=== PATIENT | male | born 1950 | race Caucasian/White ===

== ENCOUNTER 2022-06-12 12:56 | Inpatient (IN) ==
[2022-06-12] MEDS ORDERED: ONDANSETRON INJ 2 MG/ML 2 ML VIAL IV STA (13:12)
[2022-06-12] MEDS ORDERED: MoRPHine SULFATE 4 MG/ML 1 ML CARP\\VIAL IV STA ×2 (13:12→15:35)
--- NOTE | 2022-06-12 13:18 | Emergency Department Note ---
History of Present Illness General Chief complaint: Chest Pain Stated complaint: CHEST PAIN Time Seen by Provider: 06/12/22 13:03 Source: patient Mode of arrival: ambulatory Limitations: no limitations History of Present Illness Maximum Pain Intensity: 8 This patient is a 72-year-old male comes in with left upper abdominal pain radiating down to his groin and back. He says if I had to guess I think it is a kidney stone he has had them before with the last one 3 years ago he initially said chest pain but when he points his it is in his abdomen has no upper chest pain. He appears uncomfortable. This started suddenly. No dysuria hematuria no fever chills no trauma. He does appear somewhat anxious as well and he says he has been under a lot of stress because of his 's health. He is on no blood thinners he has a history of hypertension and gout. No history of abdominal surgery or aneurysms. No trauma or injury. No numbness or weakness Home Medications Medication Instructions Recorded Confirmed Type allopurinol 100 mg tablet 100 mg PO DAILY 06/12/22 06/12/22 History hydroxychloroquine 200 mg tablet 200 mg PO DAILY 06/12/22 06/12/22 History lisinopril 10 mg tablet 10 mg PO QPM 06/12/22 06/12/22 History metoprolol succinate 25 mg 25 mg PO QAM 06/12/22 06/12/22 History tablet,extended release 24 hr Allergies Allergy/AdvReac Type Severity Reaction Status Date / Time No Known Allergies Allergy Unverified 06/12/22 13:53 Past Med/Surg History Medical History (Updated 06/12/22 @ 18:07 by Landen Humphreys MD) Arthritis Essential hypertension Gout History of basal cell carcinoma (BCC) of skin Nephrolithiasis Surgical History (Updated 06/12/22 @ 16:18 by Carmen Bradford PA-C) H/O hernia repair 1969 and 1979 History of extraction of renal calculus Hx of tonsillectomy Family History (Updated 06/12/22 @ 16:19 by Carmen Bradford PA-C) Mother Cancer Breast, 30 yrs later pancreatic cancer --> cause of Brother Heart disease Brother Cancer Prostate Cancer Social History (Updated 06/12/22 @ 16:15 by Carmen Bradford PA-C) Smoking Status: Former smoker Do You Dip or Chew Tobacco: No; Hx Alcohol Use: Yes Alcohol type: beer Hx Substance Use: No Preferred Language: Kenyan Communication Ability: Effective 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 Hypertension Social historylives locally with his Review of Systems A total of 10 systems reviewed and were otherwise negative Physical Exam Vital Signs Vital Signs - 24 hr 06/12/22 12:58 06/12/22 13:27 06/12/22 13:27 Temperature 36.1 C L Temperature Source Temporal Artery Scan Pulse Rate 72 Pulse Rate [Apical] Pulse Rhythm Pulse Rhythm [Apical] Pulse Strength [Apical] Respiratory Rate 16 Respiratory Effort / Characteristics Non-Labored Short of Breath Respiratory Depth Normal Normal Respiratory Pattern Regular Blood Pressure 140/77 Blood Pressure [Left Arm] Blood Pressure Mean 98 Blood Pressure Mean [Left Arm] Pulse Oximetry 98 95 Oxygen Delivery Method Room Air Room Air Room Air Sepsis Recent Fever Within 48 Hours No Sepsis New/Unexplained Change in Mental Status N/A Sepsis Action Taken by Nursing No Action Required 06/12/22 13:27 06/12/22 13:46 06/12/22 15:26 Temperature Temperature Source Pulse Rate 72 Pulse Rate [Apical] 61 68 Pulse Rhythm Regular Pulse Rhythm [Apical] Regular Pulse Strength [Apical] Normal Respiratory Rate 24 23 18 Respiratory Effort / Characteristics Short of Breath Non-Labored Respiratory Depth Normal Respiratory Pattern Blood Pressure Blood Pressure [Left Arm] 198/96 H 152/70 H Blood Pressure Mean Blood Pressure Mean [Left Arm] 130 97 Pulse Oximetry 95 95 96 Oxygen Delivery Method Room Air Room Air Room Air Sepsis Recent Fever Within 48 Hours Sepsis New/Unexplained Change in Mental Status Sepsis Action Taken by Nursing 06/12/22 15:42 Temperature Temperature Source Pulse Rate Pulse Rate [Apical] 67 Pulse Rhythm Pulse Rhythm [Apical] Pulse Strength [Apical] Respiratory Rate 18 Respiratory Effort / Characteristics Respiratory Depth Respiratory Pattern Blood Pressure Blood Pressure [Left Arm] 159/90 H Blood Pressure Mean Blood Pressure Mean [Left Arm] 113 Pulse Oximetry 95 Oxygen Delivery Method Room Air Sepsis Recent Fever Within 48 Hours Sepsis New/Unexplained Change in Mental Status Sepsis Action Taken by Nursing General: Well developed well nourished mildly uncomfortable older male who is complaining of pain he also appears anxious and teary-eyed at times but in no ac swapna respiratory distress, breathing comfortably on room air. Normal speech HEENT: Normal cephalic atraumatic. Pupils are equal round and reactive to light. Extraocular movements are intact. Oropharynx is pink with moist mucous membranes. No swelling of the mouth lips or tongue. Neck: Supple with a midline trachea. No meningeal signs or stiffness, no JVD or bruits. No Stridor. Chest: Clear to auscultation bilaterally. No wheezes or rhonchi. No increased work of breathing. Heart: Regular rate and rhythm without murmurs or gallops. Abdomen: Soft, mildly tender in the left abdomen more so in the upper abdomen nondistended without rebound guarding or rigidity. Extremities: No cyanosis clubbing or edema. No calf tenderness or assymetry Spine/Back. Non tender to palpation. No CVA tenderness Skin: Good turgor without rashes. Neurologic exam: Cranial nerves two through 12 are intact. Motor and sensation are intact and symmetrical throughout. Course Administered Medications Sodium Chloride (Nss 1000ml) 1,000 mls @ 100 mls/hr IV .Q10H LINDY Stop: 07/12/22 16:29 Last Admin: 06/12/22 16:47 Dose: 100 mls/hr Documented By: ALDO Discontinued Medications Ketorolac Tromethamine (Ketorolac Tromethamine 15 Mg/Ml Vial) Confirm Administered Dose 15 mg .ROUTE .STK-MED ONE Stop: 06/12/22 13:46 Last Admin: 06/12/22 13:50 Dose: Not Given Documented By: SHAHAB Ketorolac Tromethamine (Ketorolac Tromethamine 15 Mg/Ml Vial) 10 mg IV NOW ONE Stop: 06/12/22 13:47 Last Admin: 06/12/22 13:51 Dose: 10 mg Documented By: SHAHAB Morphine Sulfate (Morphine Sulfate 4 Mg/Ml 1 Ml Carp\Vial) 4 mg IV NOW STA Stop: 06/12/22 13:13 Last Admin: 06/12/22 13:20 Dose: 4 mg Documented By: SHAHAB Morphine Sulfate (Morphine Sulfate 4 Mg/Ml 1 Ml Carp\Vial) 4 mg IV NOW STA Stop: 06/12/22 15:36 Last Admin: 06/12/22 15:42 Dose: 4 mg Documented By: ALDO Ondansetron HCl (Ondansetron Inj 2 Mg/Ml 2 Ml Vial) 4 mg IV NOW STA Stop: 06/12/22 13:13 Last Admin: 06/12/22 13:20 Dose: 4 mg Documented By: SHAHAB Tamsulosin HCl (Tamsulosin Hcl 0.4 Mg Cap) 0.4 mg PO NOW ONE Stop: 06/12/22 16:30 Last Admin: 06/12/22 16:46 Dose: 0.4 mg Documented By: ALDO Medical Decision Making Differential Diagnosis Acute coronary syndrome, arrhythmia, kidney stone, aneurysm, intra-abdominal process, diverticulitis, electrolyte or metabolic abnormalities, infectious, sepsis, COVID Medical Records Attestation: I reviewed the patient's medical records. Home Medications Current Medication List: was personally reviewed by me Laboratory Data Attestation: I reviewed the patient's lab results. Result diagrams: 06/12/22 13:25 06/12/22 13:25 Lab Results 06/12/22 06/12/22 06/12/22 Range/Units 13:25 13:25 13:25 WBC 8.07 (4.8-10.8) K/ul RBC 5.26 (4.63-6.08) M/uL Hgb 17.3 (14.0-18.0) g/dl Hct 48.1 (40.1-51.0) % MCV 91.4 (80.0-100.0) fL MCH 32.9 (25.0-34.0) pg MCHC 36.0 (32.0-36.0) g/dL RDW Std Deviation 41.8 (36.4-46.3) fL RDW Coeff of [place] 12.4 (11.5-14.5) % Plt Count 182 (130-400) K/uL MPV 9.6 (9.4-12.4) fL Immature Gran % (Auto) 0.4 % Neut % (Auto) 63.5 % Lymph % (Auto) 23.5 % [place] % (Auto) 9.4 % Eos % (Auto) 2.6 % Baso % (Auto) 0.6 % Neut # (Auto) 5.12 (1.4-6.5) K/uL Lymph # (Auto) 1.90 (1.2-3.4) K/uL [place] # (Auto) 0.76 (0.24-0.82) K/uL Eos # (Auto) 0.21 (0-0.50) K/uL Baso # (Auto) 0.05 (0-0.2) K/uL Immature Gran # (Auto) 0.03 H (0.00-0.02) K/uL PT Cancelled INR Cancelled APTT Cancelled PTT Ratio Cancelled Sodium 140 (136-145) mmol/L Potassium 3.9 (3.5-5.1) mmol/L Chloride 106 (98-107) mmol/L Carbon Dioxide 24 (21-32) mmol/L Anion Gap 10 (3-11) BUN 12 (6-23) mg/dl Creatinine 1.14 (0.6-1.4) mg/dl Est Cr Clr Drug Dosing 79.0 ml/min Est GFR ( Amer) 75.1 ml/min Est GFR (Non-Af Amer) 64.8 ml/min BUN/Creatinine Ratio 10.5 (10-20) Glucose 132 H (70-99(Fasting)) mg/dl Calcium 9.4 (8.5-10.1) mg/dl Total Bilirubin 0.7 (0.2-1.0) mg/dl AST 42 H (13-39) U/L ALT 57 H (7-52) U/L Alkaline Phosphatase 61 (34-104) U/L Troponin I High Sens 5.4 (0-20) pg/ml Total Protein 7.5 (6.0-8.3) gm/dl Albumin 4.2 (3.4-5.0) gm/dl Globulin 3.3 (2.5-4.0) gm/dl Albumin/Globulin Ratio 1.3 (0.9-2) Lipase 38 (11-82) U/L Urine Color Urine Appearance (Clear) Urine pH (4.5-7.5) Ur Specific [place] (1.000-1.030) Urine Protein (Negative) Urine Glucose (UA) (Negative) Urine Ketones (Negative) Urine Blood (Negative) Urine Nitrite (Negative) Urine Bilirubin (Negative) Urine Urobilinogen (Negative) Ur Leukocyte Esterase (Negative) Urine WBC (Auto) (0-5) /hpf Urine RBC (Auto) (0-4) /hpf U Hyaline Cast (Auto) (0-5) /lpf U Epithel Cells (Auto) (0-5) /lpf Urine Bacteria (Auto) (Negative) SARS-CoV-2, RNA, NAAT (NEGATIVE) 06/12/22 06/12/22 06/12/22 Range/Units 13:53 14:25 14:49 WBC (4.8-10.8) K/ul RBC (4.63-6.08) M/uL Hgb (14.0-18.0) g/dl Hct (40.1-51.0) % MCV (80.0-100.0) fL MCH (25.0-34.0) pg MCHC (32.0-36.0) g/dL RDW Std Deviation (36.4-46.3) fL RDW Coeff of [place] (11.5-14.5) % Plt Count (130-400) K/uL MPV (9.4-12.4) fL Immature Gran % (Auto) % Neut % (Auto) % Lymph % (Auto) % [place] % (Auto) % Eos % (Auto) % Baso % (Auto) % Neut # (Auto) (1.4-6.5) K/uL Lymph # (Auto) (1.2-3.4) K/uL [place] # (Auto) (0.24-0.82) K/uL Eos # (Auto) (0-0.50) K/uL Baso # (Auto) (0-0.2) K/uL Immature Gran # (Auto) (0.00-0.02) K/uL PT 11.4 INR 1.1 APTT 26.5 PTT Ratio 1.0 Sodium (136-145) mmol/L Potassium (3.5-5.1) mmol/L Chloride (98-107) mmol/L Carbon Dioxide (21-32) mmol/L Anion Gap (3-11) BUN (6-23) mg/dl Creatinine (0.6-1.4) mg/dl Est Cr Clr Drug Dosing ml/min Est GFR ( Amer) ml/min Est GFR (Non-Af Amer) ml/min BUN/Creatinine Ratio (10-20) Glucose (70-99(Fasting)) mg/dl Calcium (8.5-10.1) mg/dl Total Bilirubin (0.2-1.0) mg/dl AST (13-39) U/L ALT (7-52) U/L Alkaline Phosphatase (34-104) U/L Troponin I High Sens (0-20) pg/ml Total Protein (6.0-8.3) gm/dl Albumin (3.4-5.0) gm/dl Globulin (2.5-4.0) gm/dl Albumin/Globulin Ratio (0.9-2) Lipase (11-82) U/L Urine Color Yellow Urine Appearance Clear (Clear) Urine pH 7.5 (4.5-7.5) Ur Specific [place] 1.016 (1.000-1.030) Urine Protein 1+ H (Negative) Urine Glucose (UA) Negative (Negative) Urine Ketones Negative (Negative) Urine Blood Negative (Negative) Urine Nitrite Negative (Negative) Urine Bilirubin Negative (Negative) Urine Urobilinogen Negative (Negative) Ur Leukocyte Esterase Negative (Negative) Urine WBC (Auto) 1-5 (0-5) /hpf Urine RBC (Auto) 0-4 (0-4) /hpf U Hyaline Cast (Auto) 1-5 (0-5) /lpf U Epithel Cells (Auto) 0-5 (0-5) /lpf Urine Bacteria (Auto) Negative (Negative) SARS-CoV-2, RNA, NAAT NEGATIVE (NEGATIVE) Imaging Data Attestation: I personally reviewed and interpreted this imaging study as follows: My Impression: Chest x-rayno acute infiltrate, failure, pneumothorax. No free air Radiologist's Impression: Abdomen/Pelvis CT 06/12/22 13:12 CT OF THE ABDOMEN AND PELVIS WITHOUT CONTRAST CLINICAL HISTORY: Left abdominal and flank pain. COMPARISON STUDY: No previous studies for comparison. TECHNIQUE: Axial images of the abdomen and pelvis were obtained without IV contrast. Images were reviewed in the axial, sagittal, and coronal planes. Automated exposure control was utilized for the study. A dose lowering technique was utilized adhering to the principles of ALARA. FINDINGS: Lung bases are unremarkable. An 8 mm left ureteropelvic junction calculus results in mild to moderate left hydronephrosis with moderate perinephric stranding. Several left renal calculi measure up to 8 mm. There is no right hydronephrosis. Prostate is enlarged, measuring 5.2 cm in transverse dimension. Water attenuation bilateral renal lesions are suboptimally assessed on this exam but favor cysts. There is equivocal contour abnormality within the midpole of the left kidney measuring approximately 3.2 cm. This likely reflects a lobulation. Evaluation of the remainder of the abdomen and pelvis is suboptimal on this unenhanced exam. There is hepatic steatosis. No biliary or pancreatic ductal dilatation is present. Spleen, adrenal glands and pancreas are unremarkable. The appendix is normal. There is no evidence for a bowel obstruction. No acute fracture or suspicious lesion is identified within visualized skeletal structures. There is no lymphadenopathy. IMPRESSION: 1. 8 mm left ureteropelvic junction calculus which results in mild to moderate left hydronephrosis with moderate left perinephric stranding and fluid. 2. Left-sided nephrolithiasis. 3. Equivocal contour abnormality of the left kidney. This is likely due to a lobulation. An underlying solid renal lesion is considered less likely however a nonemergent renal protocol CT is recommended. 4. Hepatic steatosis. ACT 112: Positive. There are findings on this exam that require communication between the performing entity and the patient following Patient Test Result Information Act ([place] Act 112) guidelines. Electronically signed by: Teodoro Johns M.D. 06/12/2022 2:06 PM Chest X-Ray 06/12/22 13:12 XR chest 1V portable CLINICAL HISTORY: Atypical chest pain. COMPARISON STUDY: No previous studies for comparison. FINDINGS: Enlargement of the cardiac silhouette is noted. This is accentuated on this AP exam. There is no pneumothorax or pleural effusion. Linear left basilar opacity reflects atelectasis. There is no consolidation to suggest pneumonia. No evidence for pulmonary edema. IMPRESSION: No acute cardiopulmonary findings. ACT 112: Negative or not required by law. Electronically signed by: Teodoro Johns M.D. 06/12/2022 2:11 PM ECG Data Attestation: I personally reviewed and interpreted this ECG as follows: Indication: + abdominal pain and + chest pain Rate (beats per minute): 65 Rhythm: + normal sinus and + other (Poor baseline/artifact) ECG Intervals/blocks: + Normal QRS, + Normal QT and + Normal VA ECG [place]: + Normal ECG ST segments: + Normal ST segments ECG Findings: no PACs or no PVCs Comparison ECG Date: no prior available MDM Narrative This patient comes in as described above he was placed on a night monitor room a 12 he has chest pain but on exam section more abdominal pain. It radiates to back and groin is consistent with a previous kidney stone he said it was several years ago. IV access established was given IV morphine for the pain as well as IV Zofran. EKG was obtained and does not show any definite ischemic changes. Cardiac biomarkers were obtained as well. Chest x-ray multiple blood testing was obtained as well as a CT of his abdomen and pelvis to rule out stones aneurysm and other pathology and urinalysis and culture. He was reassessed frequently. He was feeling better with the morphine but still had some pain and was given IV Toradol 10 mg and was resting comfortably after this. His CAT scan does show a large 8 mm proximal stone on the left consistent with the symptoms. He has a normal-appearing aorta. His urine does not suggest infection. Has no white count or fever to suggest infection. No significant anemia. His troponin is negative and in the setting of atypical symptoms makes cardiac disease highly unlikely. He has normal renal function. AST and LT are mildly elevated but he has nothing to clinically to suggest liver gallbladder or pancreas disease. The pain started coming back he was given additional morphine 4 mg IV. With his large proximal stone his need for multiple IV pain medications and his age and comorbidities I do think he should be admitted/observed. I have consulted the [facility] hospitalist to see him in ER for these measures. His COVID testing was negative Continuous cardiac monitoring: Orders placed in EMR for continuous cardiac monitoring. Agosto interpretation the patient noted be in normal sinus rhythm with a rate of 70 Impression & Plan Renal colic on left side, Obstructive uropathy, Lab test negative for COVID-19 virus, Nausea, Abdominal pain Discharge Plan Visit Data Chief Complaint: Chest Pain Stated Complaint: CHEST PAIN ED Provider: Landen Humphreys Discharge Problem: Renal colic on left side, Obstructive uropathy, Lab test negative for COVID-19 virus, Nausea, Abdominal pain Discharge Instructions Interventions: ED Discharge Assessment Last Done: 06/12/22 17:24 : Abdominal pain Qualifiers: Abdominal location: left upper quadrant Qualified Code(s): R10.12 - Left upper quadrant pain
[2022-06-12 13:31] LABS: Basophils # (auto) 0.05 K/uL (0-0.2); Basophils % (auto) 0.6 %; Eosinophils # (auto) 0.21 K/uL (0-0.50); Eosinophils % (auto) 2.6 %; Hematocrit (blood only) 48.1 % (40.1-51.0); Hemoglobin 17.3 g/dl (14.0-18.0); Immature Granulocytes # (auto) 0.03 K/uL (0.00-0.02); Immature Granulocytes % (auto) 0.4 %; Lymphocytes % (auto) 23.5 %; Mean Corpuscular Hemoglobin 32.9 pg (25.0-34.0); Mean Corpuscular Volume 91.4 fL (80.0-100.0); Mean Platelet Volume 9.6 fL (9.4-12.4); Monocytes # (auto) 0.76 K/uL (0.24-0.82); Monocytes % (auto) 9.4 %; Neutrophils # (auto) 5.12 K/uL (1.4-6.5); Neutrophils % (auto) 63.5 %; Platelet Count 182 K/uL (130-400); RDW Coefficient of Variation 12.4 % (11.5-14.5); RDW Standard Deviation 41.8 fL (36.4-46.3); Red Blood Count 5.26 M/uL (4.63-6.08); White Blood Count 8.07 K/ul (4.8-10.8)
[2022-06-12] MEDS ORDERED: KETOROLAC TROMETHAMINE 15 MG/ML VIAL ONE (13:45)
[2022-06-12] MEDS ORDERED: KETOROLAC TROMETHAMINE 15 MG/ML VIAL IV ONE (13:46)
[2022-06-12 14:04] LABS: Albumin Globulin Ratio 1.3 (0.9-2); Albumin Level 4.2 gm/dl (3.4-5.0); BUN Creatinine Ratio 10.5 (10-20); Bilirubin,Total 0.7 mg/dl (0.2-1.0); Calcium 9.4 mg/dl (8.5-10.1); Est GFR (African American) 75.1 ml/min; Est GFR (Non-African American) 64.8 ml/min; Globulin 3.3 gm/dl (2.5-4.0); Potassium 3.9 mmol/L (3.5-5.1); Total Protein 7.5 gm/dl (6.0-8.3)
[2022-06-12 14:09] LABS: Troponin I High Sensitivity 5.4 pg/ml (0-20)
--- NOTE | 2022-06-12 14:09 | CT Scan Report ---
CT OF THE ABDOMEN AND PELVIS WITHOUT CONTRAST CLINICAL HISTORY: Left abdominal and flank pain. COMPARISON STUDY: No previous studies for comparison. TECHNIQUE: Axial images of the abdomen and pelvis were obtained without IV contrast. Images were revi ewed in the axial, sagittal, and coronal planes. Automated exposure control was utilized for the skyler dy. A dose lowering technique was utilized adhering to the principles of ALARA. FINDINGS: Lung bases are unremarkable. An 8 mm left ureteropelvic junction calculus results in mild t o moderate left hydronephrosis with moderate perinephric stranding. Several left renal calculi measur e up to 8 mm. There is no right hydronephrosis. Prostate is enlarged, measuring 5.2 cm in transverse dimension. Water attenuation bilateral renal lesions are suboptimally assessed on this exam but favor cysts. There is equivocal contour abnormality within the midpole of the left kidney measuring approx imately 3.2 cm. This likely reflects a lobulation. Evaluation of the remainder of the abdomen and pel vis is suboptimal on this unenhanced exam. There is hepatic steatosis. No biliary or pancreatic ducta l dilatation is present. Spleen, adrenal glands and pancreas are unremarkable. The appendix is normal . There is no evidence for a bowel obstruction. No acute fracture or suspicious lesion is identified within visualized skeletal structures. There is no lymphadenopathy. IMPRESSION: 1. 8 mm left ureteropelvic junction calculus which results in mild to moderate left hydronephrosis wi th moderate left perinephric stranding and fluid. 2. Left-sided nephrolithiasis. 3. Equivocal contour abnormality of the left kidney. This is likely due to a lobulation. An underlyin g solid renal lesion is considered less likely however a nonemergent renal protocol CT is recommended . 4. Hepatic steatosis. ACT 112: Positive. There are findings on this exam that require communication between the performing entity and the patient following Patient Test Result Information Act ([place] Act 112) guidelines. Electronically signed by: Teodoro Johns M.D. 06/12/2022 2:06 PM
--- NOTE | 2022-06-12 14:13 | XRay Report ---
XR chest 1V portable CLINICAL HISTORY: Atypical chest pain. COMPARISON STUDY: No previous studies for comparison. FINDINGS: Enlargement of the cardiac silhouette is noted. This is accentuated on this AP exam. There is no pneumothorax or pleural effusion. Linear left basilar opacity reflects atelectasis. There is no consolidation to suggest pneumonia. No evidence for pulmonary edema. IMPRESSION: No acute cardiopulmonary findings. ACT 112: Negative or not required by law. Electronically signed by: Teodoro Johns M.D. 06/12/2022 2:11 PM
[2022-06-12 15:08] LABS: INR 1.1 (0.9-1.1); Partial Thromboplastin Time 26.5 Seconds (21.0-31.0); Prothrombin Time 11.4 Seconds (9.0-12.0)
[2022-06-12 15:12] LABS: Appearance Urine Clear (Clear); Bacteria Urine Automated Negative (Negative); Bilirubin Urine Negative (Negative); Blood Urine Negative (Negative); Color Urine Yellow; Epithelial Cell Urine Auto 0-5 /lpf (0-5); Glucose Urine UA Negative (Negative); Ketones Urine Negative (Negative); Leukocyte Esterase Urine Negative (Negative); Nitrite Urine Negative (Negative); RBC Urine Automated 0-4 /hpf (0-4); Specific Gravity Urine 1.016 (1.000-1.030); Urobilinogen Urine Negative (Negative); pH Urine 7.5 (4.5-7.5)
[2022-06-12 15:17] LABS: Protein Urine 1+ (Negative)
--- NOTE | 2022-06-12 15:56 | History & Physical Report ---
Date of Service June 12, 2022 Assessment & Plan (1) Urinary tract obstruction by kidney stone: Plan: No GRETCHEN on labs but evidence of hydronephrosis on imaging. Intractable pain in the ED requiring multiple doses of narcotics. - Admit overnight for pain control, IVF - Add Flomax - Strain urine - Consult urology - will make pt NPO after midnight in case any intervention is required - Follow labs (2) Hydronephrosis of left kidney: (3) Essential hypertension: (4) Gout: Plan Continue other home medications as appropriate. Pt seen and reviewed with collaborating physician, Dr. Mary. Plan of care discussed and as outlined above Code Status: Full Code DVT Prophylaxis: SCDs for now Farshad Bradford PA-C History of Present Illness Chief Complaint: left chest and flank pain Primary Care Provider: NO PCP This is a 72 y/o male with a PMH of HTN, gout, and nephrolithiasis who presented to the ED with severe left chest and abdominal pain. He describes the abrupt onset of pain in left lower chest, left abdomen and flank, radiating to groin/testicle that started around 10 am today. Pain was gradually worsening but pt tried to continue with his day. It felt similar to prior episodes of kidney stones - tried to urinate to relieve the pain but no relief. Pain continued to worsen after and he developed associated nausea and dry heaves though no emesis. Decided to come to the ED for evaluation. His last kidney stone was about three years ago - required unknown procedure for removal. He has had some relief with the Morphine but persistent discomfort even with meds, pain continues to come back when the pain medications wear off. Denies dysuria, hematuria, fevers. Nausea better at present. No trauma to testicle recently. No testicular swelling. Visiting the area from [place] - hopes to return home as soon as he is discharged. Allergies Allergy/AdvReac Type Severity Reaction Status Date / Time No Known Allergies Allergy Unverified 06/12/22 13:53 Home Medications Medication Instructions Recorded Confirmed Type allopurinol 100 mg tablet 100 mg PO DAILY 06/12/22 06/12/22 History hydroxychloroquine 200 mg tablet 200 mg PO DAILY 06/12/22 06/12/22 History lisinopril 10 mg tablet 10 mg PO QPM 06/12/22 06/12/22 History metoprolol succinate 25 mg 25 mg PO QAM 06/12/22 06/12/22 History tablet,extended release 24 hr Past Med/Surg History Medical History Arthritis Essential hypertension Gout History of basal cell carcinoma (BCC) of skin Nephrolithiasis Surgical History H/O hernia repair 1969 and 1979 History of extraction of renal calculus Hx of tonsillectomy Family History Mother Cancer Breast, 30 yrs later pancreatic cancer --> cause of Brother Heart disease Brother Cancer Prostate Cancer Social History Smoking Status: Former smoker Do You Dip or Chew Tobacco: No; Hx Alcohol Use: Yes Alcohol type: beer Hx Substance Use: No Preferred Language: Palestinian Communication Ability: Effective Flight Follower Required: No Beliefs That Will Affect Care: None Current Living Situation: Spouse Other Information That Helps Us Care for You: No Feels Safe at Home: Yes Safety Concerns: Feels Safe At This Time Assistive Devices: Hearing Aid - Bilateral Review of Systems Review of Systems: All systems reviewed & are unremarkable except as noted in HPI & below Constitutional: no fever and no chills Eyes: no diplopia Ear, Nose, Mouth, Throat: no nasal congestion and no sore throat Respiratory: no cough and no dyspnea Cardiovascular: no chest pain, no palpitations and no edema Gastrointestinal: + abdominal pain, + nausea and + vomiting; no diarrhea/loose stools and no blood in stools Genitourinary: no dysuria or no hematuria Musculoskeletal: + back pain; no neck pain Integumentary: no yellowing of the skin Neurologic: no seizure-like activity and no headache(s) Psychiatric: no depression and no anxiety Physical Exam Constitutional: well developed and well nourished; + uncomfortable Eyes: + anicteric sclerae Neck: trachea midline Respiratory: no respiratory distress and no labored breathing Auscultation: lungs clear to auscultation bilaterally; no rales, no rhonchi and no wheezes Cardiovascular: Rate/Rhythm: regular rate and regular rhythm Vessels: posterior tibial pulses present and radial pulses present Extremities: no pedal edema Gastrointestinal (Abdomen): Inspection/Auscultation: normal bowel sounds; abdomen not distended Percussion/Palpation: abdomen soft; abdomen nontender Musculoskeletal: Head/Neck/Chest: normocephalic, head atraumatic and neck supple Skin: no jaundice Neurologic: moves all extremities; no focal motor deficits and not confused Results & Data Results & Data ([facility]) Vital Signs (Past 12 Hours) Vital Signs Temp Pulse Pulse Resp BP BP Pulse Ox 06/12/22 15:42 67 18 159/90 H 95 06/12/22 15:26 68 18 152/70 H 96 06/12/22 13:46 72 23 95 06/12/22 13:27 61 24 198/96 H 95 06/12/22 13:27 95 06/12/22 13:27 06/12/22 12:58 36.1 C L 72 16 140/77 98 O2 Del Method 06/12/22 15:42 Room Air 06/12/22 15:26 Room Air 06/12/22 13:46 Room Air 06/12/22 13:27 Room Air 06/12/22 13:27 Room Air 06/12/22 13:27 Room Air 06/12/22 12:58 Room Air Laboratory Results Laboratory Results - last 24 hr 06/12/22 06/12/22 06/12/22 13:25 13:25 13:25 WBC 8.07 RBC 5.26 Hgb 17.3 Hct 48.1 MCV 91.4 MCH 32.9 MCHC 36.0 RDW Std Deviation 41.8 RDW Coeff of [place] 12.4 Plt Count 182 MPV 9.6 Immature Gran % (Auto) 0.4 Neut % (Auto) 63.5 Lymph % (Auto) 23.5 [place] % (Auto) 9.4 Eos % (Auto) 2.6 Baso % (Auto) 0.6 Neut # (Auto) 5.12 Lymph # (Auto) 1.90 [place] # (Auto) 0.76 Eos # (Auto) 0.21 Baso # (Auto) 0.05 Immature Gran # (Auto) 0.03 H PT Cancelled INR Cancelled APTT Cancelled PTT Ratio Cancelled Sodium 140 Potassium 3.9 Chloride 106 Carbon Dioxide 24 Anion Gap 10 BUN 12 Creatinine 1.14 Est Cr Clr Drug Dosing 79.0 Est GFR ( Amer) 75.1 Est GFR (Non-Af Amer) 64.8 BUN/Creatinine Ratio 10.5 Glucose 132 H Calcium 9.4 Total Bilirubin 0.7 AST 42 H ALT 57 H Alkaline Phosphatase 61 Troponin I High Sens 5.4 Total Protein 7.5 Albumin 4.2 Globulin 3.3 Albumin/Globulin Ratio 1.3 Lipase 38 Urine Color Urine Appearance Urine pH Ur Specific [place] Urine Protein Urine Glucose (UA) Urine Ketones Urine Blood Urine Nitrite Urine Bilirubin Urine Urobilinogen Ur Leukocyte Esterase Urine WBC (Auto) Urine RBC (Auto) U Hyaline Cast (Auto) U Epithel Cells (Auto) Urine Bacteria (Auto) SARS-CoV-2, RNA, NAAT 06/12/22 06/12/22 06/12/22 13:53 14:25 14:49 WBC RBC Hgb Hct MCV MCH MCHC RDW Std Deviation RDW Coeff of [place] Plt Count MPV Immature Gran % (Auto) Neut % (Auto) Lymph % (Auto) [place] % (Auto) Eos % (Auto) Baso % (Auto) Neut # (Auto) Lymph # (Auto) [place] # (Auto) Eos # (Auto) Baso # (Auto) Immature Gran # (Auto) PT 11.4 INR 1.1 APTT 26.5 PTT Ratio 1.0 Sodium Potassium Chloride Carbon Dioxide Anion Gap BUN Creatinine Est Cr Clr Drug Dosing Est GFR ( Amer) Est GFR (Non-Af Amer) BUN/Creatinine Ratio Glucose Calcium Total Bilirubin AST ALT Alkaline Phosphatase Troponin I High Sens Total Protein Albumin Globulin Albumin/Globulin Ratio Lipase Urine Color Yellow Urine Appearance Clear Urine pH 7.5 Ur Specific [place] 1.016 Urine Protein 1+ H Urine Glucose (UA) Negative Urine Ketones Negative Urine Blood Negative Urine Nitrite Negative Urine Bilirubin Negative Urine Urobilinogen Negative Ur Leukocyte Esterase Negative Urine WBC (Auto) Pending Urine RBC (Auto) Pending U Hyaline Cast (Auto) Pending U Epithel Cells (Auto) Pending Urine Bacteria (Auto) Pending SARS-CoV-2, RNA, NAAT NEGATIVE Diagnostic Findings Chest X-ray 06/12/22 - IMPRESSION: No acute cardiopulmonary findings. CT Abd/Pel 06/12/22 - IMPRESSION:1. 8 mm left ureteropelvic junction calculus which results in mild to moderate left hydronephrosis with moderate left perinephric stranding and fluid. 2. Left-sided nephrolithiasis. 3. Equivocal contour abnormality of the left kidney. This is likely due to a lobulation. An underlying solid renal lesion is considered less likely however a nonemergent renal protocol CT is recommended. 4. Hepatic steatosis. Medications Administered Discontinued Medications Ketorolac Tromethamine (Ketorolac Tromethamine 15 Mg/Ml Vial) Confirm Administered Dose 15 mg .ROUTE .STK-MED ONE Stop: 06/12/22 13:46 Last Admin: 06/12/22 13:50 Dose: Not Given Documented By: SHAHAB Ketorolac Tromethamine (Ketorolac Tromethamine 15 Mg/Ml Vial) 10 mg IV NOW ONE Stop: 06/12/22 13:47 Last Admin: 06/12/22 13:51 Dose: 10 mg Documented By: SHAHAB Morphine Sulfate (Morphine Sulfate 4 Mg/Ml 1 Ml Carp\Vial) 4 mg IV NOW STA Stop: 06/12/22 13:13 Last Admin: 06/12/22 13:20 Dose: 4 mg Documented By: SHAHAB Morphine Sulfate (Morphine Sulfate 4 Mg/Ml 1 Ml Carp\Vial) 4 mg IV NOW STA Stop: 06/12/22 15:36 Last Admin: 06/12/22 15:42 Dose: 4 mg Documented By: ALDO Ondansetron HCl (Ondansetron Inj 2 Mg/Ml 2 Ml Vial) 4 mg IV NOW STA Stop: 06/12/22 13:13 Last Admin: 06/12/22 13:20 Dose: 4 mg Documented By: SHAHAB Supervising Physician Co-Signing Physician Notes Pt is a 72 y/o M with hx of HTN, gout, prior hx of kidney stones, Hepatic steatosis, Arthritis (unsure RA but pt is on Hydroxychloroquine) admitted for acute L nephrolithiasis with hydronephrosis. PE: Obese pt, NAD Cardiac: normal S1/S2, no murmur Lungs: CTA, no wheezing or crackles Abd: Obese abd, NT, soft, ventral hernia above the umbilicus MSK: trace b/l distal LE pitting edema Psych: AAOx3, normal affect A/P: Nephrolithiasis: -CT abd/pelvis: 8 mm left ureteropelvic junction calculus with mild to moderate Solgohachia -pt received IV toradol and IV morphine in the ER - Normal WBC, UA and Cr - Due to the size of the stone and prior hx of stone retrieval will consult Urology -Start pt on NS 100cc/hr, Toradol PO 10mg BID, Morphine 1mg q6hr prn, Flomax daily - Advised the pt to repeat CT abd in 2-3 months as outpt - trend BMP Other chronic conditions: plan as above Agree with A/P by Carmen Bradford PA-C
[2022-06-12] MEDS ORDERED: TAMSULOSIN HCL 0.4 MG CAP PO ONE (16:29)
[2022-06-12] MEDS ORDERED: MoRPHine SULFATE 2 MG/ML CARP IV PRN (16:34)
[2022-06-12] MEDS ORDERED: ACETAMINOPHEN 500 MG TAB PO PRN (16:34)
[2022-06-12] MEDS: SODIUM CHLORIDE 0.9% 1000ML 1,000 ML IV SCH (16:47)
[2022-06-12] MEDS ORDERED: ONDANSETRON INJ 2 MG/ML 2 ML VIAL IV PRN (17:48)
[2022-06-12] MEDS ORDERED: PNEUMOCOCCAL Polysaccharide Vaccine 25mcg/0.5mL vial/Syr IM ONE (19:00)
[2022-06-12] MEDS ORDERED: Flu Vaccine-High Dose (Fluzone-HD) PF 65+ 0.7mL SYR IM ONE (19:00)
[2022-06-12] MEDS: KETOROLAC TROMETHAMINE 10 MG TABLET PO SCH (20:17)
[2022-06-12] MEDS ORDERED: NITROGLYCERIN SL 0.4 MG/TAB TAB SL STA (20:23)
[2022-06-12] MEDS ORDERED: lisinopril 10 MG TAB PO SCH (21:00)
--- NOTE | 2022-06-12 22:15 | Urology Consultation ---
Date of Consultation June 12, 2022 Assessment & Plan (1) Renal colic on left side: Patient has been admitted on the hospitalist service. Recommend proceeding as follows: Continue Flomax for expulsive therapy Continue intravenous fluids Provide analgesics Provide antiemetics Make the patient n.p.o. after midnight in the event he is unable to pass a stone and cystoscopic intervention is required At the present time I do not feel an urgent procedure is needed as the patient does not exhibit any leukocytosis, evidence of kidney failure, is afebrile, and is not tachycardic Attending note: Independently assessed, examined, interviewed, and evaluated. Agree with above. Patient has multiple stones on the left side with an approximately 8 mm UPJ stone. Numerous other stones within the left kidney. Patient has moderate hydronephrosis with some significant perinephric stranding. Imaging have been reviewed interpreted by myself. Patient is dealing with some hypertension. Otherwise vitals are currently stable. Labs were all reviewed and are currently stable. Creatinine is in a good range and no significant white count. Extensively reviewed different options. Discussed concerns and issues. Discussed possible stent placement as well as other intervention options. Risks and benefits discussed at length for procedure. These include bleeding, infection, injury to surrounding tissues or organs, and risks associated with anesthesia. Patient states understanding and agrees to proceed. Will sign consent and schedule. Plan for cystoscopy with possible left stent and stone treatment. History of Present Illness Reason for Consultation: Nephrolithiasis Attending Physician: Susan Mary MD Allergies Allergy/AdvReac Type Severity Reaction Status Date / Time No Known Allergies Allergy Unverified 06/12/22 13:53 Home Medications Medication Instructions Recorded Confirmed Type allopurinol 100 mg tablet 100 mg PO DAILY 06/12/22 06/12/22 History hydroxychloroquine 200 mg tablet 200 mg PO DAILY 06/12/22 06/12/22 History lisinopril 10 mg tablet 10 mg PO QPM 06/12/22 06/12/22 History metoprolol succinate 25 mg 25 mg PO QAM 06/12/22 06/12/22 History tablet,extended release 24 hr Patient History Medical History Arthritis Essential hypertension Gout History of basal cell carcinoma (BCC) of skin Nephrolithiasis Surgical History H/O hernia repair 1969 and 1979 History of extraction of renal calculus Hx of tonsillectomy Family History Mother Cancer Breast, 30 yrs later pancreatic cancer --> cause of Brother Heart disease Brother Cancer Prostate Cancer Social History Smoking Status: Former smoker Do You Dip or Chew Tobacco: No; Hx Alcohol Use: Yes Alcohol type: beer Hx Substance Use: No Preferred Language: Kyrgyz Communication Ability: Effective Transfer Iron Operator Required: No Beliefs That Will Affect Care: None Current Living Situation: Spouse Other Information That Helps Us Care for You: No Feels Safe at Home: Yes Safety Concerns: Feels Safe At This Time Assistive Devices: Hearing Aid - Bilateral Review of Systems Constitutional: no fever and no chills Eyes: no eye pain Ear, Nose, Mouth, Throat: no ear pain Respiratory: no cough and no dyspnea Cardiovascular: no chest pain Gastrointestinal: + abdominal pain (Radiating from left flank) Genitourinary: + as per Subjective / HPI Musculoskeletal: + back pain (Left flank) Integumentary: no rash Neurologic: no localized weakness Physical Exam Constitutional: WD/WN, vitals as above Eyes: no conjunctival abnormality ENMT: Ears: no hearing impairment and no external ear abnormality Mouth: no oropharynx abnormality Neck: trachea midline Respiratory: normal respiratory effort; no respiratory distress and no labored breathing Cardiovascular: Rate/Rhythm: regular rate and regular rhythm Gastrointestinal (Abdomen): Abdomen is soft, nondistended, nonrigid, nontender to palpation Musculoskeletal: No calf tenderness Skin: no rashes Neurologic: moves all extremities Psychiatric: A+Ox3, euthymic affect Genitourinary: no CVA tenderness Results & Data ([facility]) Vital Signs (Past 12 Hours) Vital Signs Temp Pulse Pulse Pulse Pulse Resp BP 06/12/22 20:51 67 06/12/22 20:19 64 06/12/22 17:40 36.6 C 66 20 06/12/22 17:24 63 18 183/103 H 06/12/22 16:47 75 18 06/12/22 15:42 67 18 06/12/22 15:26 68 18 11/19/22 13:46 72 23 06/12/22 13:27 61 24 06/12/22 13:27 06/12/22 13:27 06/12/22 12:58 36.1 C L 72 16 140/77 BP Pulse Ox O2 Del Method 06/12/22 20:51 173/82 H 06/12/22 20:19 172/92 H 96 Room Air 06/12/22 17:40 169/81 H 96 Room Air 06/12/22 17:24 91 Room Air 06/12/22 16:47 166/78 H 94 Room Air 06/12/22 15:42 159/90 H 95 Room Air 06/12/22 15:26 152/70 H 96 Room Air 06/12/22 13:46 95 Room Air 06/12/22 13:27 198/96 H 95 Room Air 06/12/22 13:27 95 Room Air 06/12/22 13:27 Room Air 06/12/22 12:58 98 Room Air PG Care Time/CCT Total # of Minutes Spent Total Time Spent with Patient: Total time spent is greater than 50% in coordination of care (as documented) at patient's floor/unit and/or counseling patient: Coding Level of Care Code 24000 Inpt Consult Level 5 Diagnoses Renal colic on left side N23
[2022-06-13 06:24] LABS: Basophils # (auto) 0.04 K/uL (0-0.2); Basophils % (auto) 0.4 %; Eosinophils # (auto) 0.26 K/uL (0-0.50); Eosinophils % (auto) 2.6 %; Hematocrit (blood only) 46.1 % (40.1-51.0); Hemoglobin 15.9 g/dl (14.0-18.0); Immature Granulocytes # (auto) 0.04 K/uL (0.00-0.02); Immature Granulocytes % (auto) 0.4 %; Lymphocytes # (auto) 1.83 K/uL (1.2-3.4); Lymphocytes % (auto) 18.4 %; Mean Corpuscular Hemoglobin 32.8 pg (25.0-34.0); Mean Corpuscular Hgb Conc 34.5 g/dL (32.0-36.0); Mean Corpuscular Volume 95.1 fL (80.0-100.0); Mean Platelet Volume 9.6 fL (9.4-12.4); Monocytes # (auto) 1.22 K/uL (0.24-0.82); Monocytes % (auto) 12.3 %; Neutrophils # (auto) 6.55 K/uL (1.4-6.5); Neutrophils % (auto) 65.9 %; Platelet Count 149 K/uL (130-400); RDW Coefficient of Variation 12.6 % (11.5-14.5); RDW Standard Deviation 43.6 fL (36.4-46.3); Red Blood Count 4.85 M/uL (4.63-6.08); White Blood Count 9.94 K/ul (4.8-10.8)
[2022-06-13 06:46] LABS: BUN Creatinine Ratio 12.6 (10-20); Calcium 8.8 mg/dl (8.5-10.1); Creatinine Clr Calc Pharmacy 75.7 ml/min; Est GFR (African American) 71.3 ml/min; Est GFR (Non-African American) 61.5 ml/min; Potassium 4.4 mmol/L (3.5-5.1)
[2022-06-13] MEDS: KETOROLAC TROMETHAMINE 10 MG TABLET PO SCH (08:54)
[2022-06-13] MEDS: SODIUM CHLORIDE 0.9% 1000ML 1,000 ML IV SCH (08:54)
[2022-06-13] MEDS ORDERED: allopurinoL 100 MG TAB PO SCH (09:00)
[2022-06-13] MEDS ORDERED: METOPROLOL SUCC 25MG EXT REL TAB PO SCH (09:00)
[2022-06-13] MEDS ORDERED: TAMSULOSIN HCL 0.4 MG CAP PO SCH (09:00)
--- NOTE | 2022-06-13 09:30 | Anesthesiology Consultation ---
Date of Service June 13, 2022 Assessment & Plan (1) Encounter for pre-operative examination: Chart Review Chart Review: Acceptable Risk for Surgery History Surgery Operation Date: 06/13/22 10:00 Proposed Procedures p Cystoscopy, Left Ureteral Stent Insertion, and Possible Basket Stone Extraction(Left) - Tony Saha DO Height/Weight Height: 5 ft 11 in Weight: 118.7 kg Allergies Allergy/AdvReac Type Severity Reaction Status Date / Time No Known Allergies Allergy Unverified 06/12/22 13:53 Medications Home Medications Medication Instructions Recorded Confirmed Last Taken allopurinol 100 mg tablet 100 mg PO DAILY 06/12/22 06/12/22 06/12/22 hydroxychloroquine 200 mg tablet 200 mg PO DAILY 06/12/22 06/12/22 06/12/22 lisinopril 10 mg tablet 10 mg PO QPM 06/12/22 06/12/22 06/12/22 metoprolol succinate 25 mg 25 mg PO QAM 06/12/22 06/12/22 06/12/22 tablet,extended release 24 hr Active Medications Generic Name Dose Route Start Last Admin Trade Name Sebastiánq PRN Reason Stop Dose Admin Allopurinol 100 mg 06/13/22 09:00 06/13/22 08:54 Allopurinol 100 Mg Tab PO 07/13/22 08:59 100 mg DAILY LINDY Administration Sodium Chloride 1,000 mls @ 50 mls/hr 06/12/22 16:30 06/13/22 08:54 Nss 1000ml IV 07/12/22 16:29 50 mls/hr .Q20H LINDY Administration Ketorolac Tromethamine 10 mg 06/12/22 21:00 06/13/22 08:54 Ketorolac Tromethamine 10 Mg Tablet PO 06/17/22 20:59 10 mg BID LINDY Administration Lisinopril 10 mg 06/12/22 21:00 06/12/22 20:17 Lisinopril 10 Mg Tab PO 07/12/22 20:59 10 mg QPM LINDY Administration Metoprolol Succinate 25 mg 06/13/22 09:00 06/13/22 08:54 Metoprolol Succ 25mg Ext Rel Tab PO 07/13/22 08:59 25 mg QAM LINDY Administration Tamsulosin HCl 0.4 mg 06/13/22 09:00 06/13/22 08:55 Tamsulosin Hcl 0.4 Mg Cap PO 07/13/22 08:59 0.4 mg QAM LINDY Administration Past Medical History Medical History Arthritis Essential hypertension Gout History of basal cell carcinoma (BCC) of skin Nephrolithiasis Past Family History Family History Mother Cancer Breast, 30 yrs later pancreatic cancer --> cause of Brother Heart disease Brother Cancer Prostate Cancer Past Surgical History Surgical History H/O hernia repair 1969 and 1979 History of extraction of renal calculus Hx of tonsillectomy Social History Smoking Status: Former smoker Do You Dip or Chew Tobacco: No Hx Alcohol Use: Yes Alcohol type: beer alcohol intake frequency: holidays/special occasions only Hx Substance Use: No Physical Exam Vital Signs Last Vital Signs Temp 36.8 C 06/13/22 09:21 Pulse 70 06/13/22 09:21 Resp 16 06/13/22 09:21 BP 172/90 H 06/13/22 09:21 Pulse Ox 96 06/13/22 09:21 O2 Del Method 06/13/22 09:21 Testing Laboratory Results 06/13/22 05:36 06/13/22 05:36 PT 11.4 Seconds (9.0-12.0) 06/12/22 14:25 INR 1.1 (0.9-1.1) 06/12/22 14:25 APTT 26.5 Seconds (21.0-31.0) 06/12/22 14:25 Urine Color Yellow 06/12/22 14:49 Urine Appearance Clear (Clear) 06/12/22 14:49 Urine pH 7.5 (4.5-7.5) 06/12/22 14:49 Ur Specific [place] 1.016 (1.000-1.030) 06/12/22 14:49 Urine Protein 1+ (Negative) H 06/12/22 14:49 Urine Glucose (UA) Negative (Negative) 06/12/22 14:49 Urine Ketones Negative (Negative) 06/12/22 14:49 Urine Nitrite Negative (Negative) 06/12/22 14:49 Ur Leukocyte Esterase Negative (Negative) 06/12/22 14:49 Urine WBC (Auto) 1-5 /hpf (0-5) 06/12/22 14:49 Urine RBC (Auto) 0-4 /hpf (0-4) 06/12/22 14:49 U Hyaline Cast (Auto) 1-5 /lpf (0-5) 06/12/22 14:49 U Epithel Cells (Auto) 0-5 /lpf (0-5) 06/12/22 14:49 Urine Bacteria (Auto) Negative (Negative) 06/12/22 14:49 Electrocardiogram Date: 06/12/22 Findings: + NSR @ (65) Chest X-Ray Date: 06/12/22 Findings: + NAD
[2022-06-13] MEDS ORDERED: MIDAZOLAM HCL 1 MG/ML 2ML VIAL ONE ×2 (09:39→10:35)
[2022-06-13] MEDS ORDERED: fentaNYL citrate 100 MCG/2 ML VIAL ONE (09:40)
[2022-06-13] MEDS ORDERED: LIDOCAINE 2% MPF LOCAL 5 ML VIAL INFIL ONE (09:41)
[2022-06-13] MEDS ORDERED: PROPOFOL IV EMULSION 10 MG/ML 20 ML VIAL IV ONE (09:41)
[2022-06-13] MEDS ORDERED: ONDANSETRON INJ 2 MG/ML 2 ML VIAL ONE (09:41)
[2022-06-13] MEDS ORDERED: ceFAZolin 3000MG/72.5 ML BAG IV ONE (10:21)
[2022-06-13] MEDS ORDERED: fentaNYL citrate 100 MCG/2 ML VIAL IV PRN (10:24)
[2022-06-13] MEDS ORDERED: ONDANSETRON INJ 2 MG/ML 2 ML VIAL IV PRN (10:24)
[2022-06-13] MEDS ORDERED: ATROPINE SULFATE 0.1 MG/ML 10ML SYR IV PRN (10:24)
[2022-06-13] MEDS ORDERED: LABETALOL HCL IV 5 MG/ML 20ML IV PRN (10:24)
[2022-06-13] MEDS ORDERED: DIATRIZOATE MEGLUMINE 30% 100ML VIAL INSTIL ONE (10:56)
--- NOTE | 2022-06-13 11:03 | Operative Report ---
PG Post Operative Report Pre & Post Diagnosis Operation Date: 06/13/22 10:00 Pre-Op Diagnosis: Left Obstructing Ureteral Pelvis Junction Stone Post-Op Diagnosis: Left Obstructing Ureteral Pelvis Junction Stone I identified the patient and participated in the time-out.: Yes Procedure Operation Date: 06/13/22 10:00 Actual Procedures p Cystoscopy with Left Retrograde Pyelogram and Insertion Left Ureteral Stent Insertion(Left) - Tony Saha DO Surgeon Tony Saha, II, DO Debt And Budget Counselor None Estimated Blood Loss 1 Findings Consistent with Post-Op Diagnosis Significant obstruction from left UPJ stone. Stent placed in good position. Specimens Urine for culture left kidney Drains 6 Fr Multilength Anesthesia Type MAC Complications none Disposition Disposition: Recovery Room Indications Patient with obstruction. Risks and benefits discussed at length. Description of Procedure Patient was consented and brought back to the operating room. Patient was placed under anesthesia in the supine position and moved to the dorsal lithotomy position. Patient was prepped and draped in the regular sterile fashion. A time out was completed. A 30degree Cystoscope was placed into the bladder and the entire bladder was examined. The UO's were identified. The UO was cannulized with a catheter, urine was aspirated, and a retrograde pyelogram was completed. A wire was then placed. With the wire in place, a 6 Fr Double J stent was placed. It was confirmed with fluoroscopy. With the stent in place, the bladder was emptied. The scope was removed. The patient was cleaned, aroused from anesthesia, and transferred to the pacu in stable condition having tolerated the procedure well with no complications. I was present and participated in all aspects of the procedure. The patient will be monitored in the PACU until transferred. Patient is from [place] and plans to travel back there later this week. We will plan to have patient follow-up with a urologist in that area for definitive treatment of the multiple stones on the left as well as management of the stent. If patient does decide to stay in the area and wishes to proceed with intervention here can always be set up in the next few weeks for intervention on stone disease on the left kidney. I attest to the content of the Intraoperative Record and any orders documented therein. Any exceptions are noted below.
--- NOTE | 2022-06-13 11:17 | Fluoroscopy Report ---
INTRAOPERATIVE RADIOGRAPHS CLINICAL HISTORY: Left ureteral stent placement. Fluoroscopy time: 14 seconds. FINDINGS: 2 spot fluoroscopic views of the left abdomen are correlated with abdominal CT dated 2021. The images show the proximal and distal ends of a left ureteral stent in appropriate position. Contrast in the renal pelvis shows mild fullness of the collecting system. Surgical clips project ove r the right groin. IMPRESSION: Intraoperative images from a left ureter stent placement procedure as above. Electronically signed by: Ab Rai M.D. 06/13/2022 11:14 AM
--- NOTE | 2022-06-13 11:39 | Anesthesiology Progress Note ---
Date of Service June 13, 2022 Anesthesia Post Procedure Vital Signs Vital Signs: Temp Pulse Pulse Pulse Pulse Pulse Resp 06/13/22 11:30 36.7 C 63 16 06/13/22 11:20 36.5 C 58 L 12 06/13/22 11:10 59 L 13 06/13/22 11:02 36.0 C L 60 14 06/13/22 09:21 36.8 C 70 16 06/13/22 07:53 36.7 C 69 16 06/12/22 23:11 36.7 C 64 20 06/12/22 19:40 06/12/22 20:51 67 06/12/22 20:19 64 06/12/22 17:40 36.6 C 66 20 06/12/22 17:24 63 18 06/12/22 16:47 75 18 06/12/22 15:42 67 18 06/12/22 15:26 68 18 06/12/22 13:46 72 23 06/12/22 13:27 61 24 06/12/22 13:27 06/12/22 13:27 06/12/22 12:58 36.1 C L 72 16 BP BP Pulse Ox O2 Del Method O2 Flow Rate 06/13/22 11:30 120/73 97 Room Air 06/13/22 11:20 118/70 95 Room Air 06/13/22 11:10 124/67 97 Oxymask 2 06/13/22 11:02 136/54 L 98 Oxymask 9 06/13/22 09:21 172/90 H 96 Room Air 06/13/22 07:53 148/84 H 94 Room Air 06/12/22 23:11 163/88 H 96 Room Air 06/12/22 19:40 Room Air 06/12/22 20:51 173/82 H 06/12/22 20:19 172/92 H 96 Room Air 06/12/22 17:40 169/81 H 96 Room Air 06/12/22 17:24 183/103 H 91 Room Air 06/12/22 16:47 166/78 H 94 Room Air 06/12/22 15:42 159/90 H 95 Room Air 06/12/22 15:26 152/70 H 96 Room Air 06/12/22 13:46 95 Room Air 06/12/22 13:27 198/96 H 95 Room Air 06/12/22 13:27 95 Room Air 06/12/22 13:27 Room Air 06/12/22 12:58 140/77 98 Room Air Pain Intensity Left Abdomen: Pain Intensity: 4 Transfer of Care Handoff Completed per policy Notes Mental Status: alert / awake / arousable Patient Amnestic to Procedure: Yes Nausea / Vomiting: adequately controlled Pain: adequately controlled Airway Patency, RR, SpO2: stable & adequate BP & HR: stable & adequate Hydration State: stable & adequate Anesthetic Complications: no major complications apparent
--- NOTE | 2022-06-13 12:30 | Hospitalist Progress Note ---
Date of Service June 13, 2022 Delayed entry Date of service per above Assessment & Plan (1) Urinary tract obstruction by kidney stone: Plan: CT abdomen/ pelvis: 1. 8 mm left ureteropelvic junction calculus which results in mild to moderate left hydronephrosis with moderate left perinephric stranding and fluid. 2. Left-sided nephrolithiasis. 3. Equivocal contour abnormality of the left kidney. This is likely due to a lobulation. An underlying solid renal lesion is considered less likely however a nonemergent renal protocol CT is recommended. 4. Hepatic steatosis. Urine culture: Pending 06/13/2022: Status post Cystoscopy with Left Retrograde Pyelogram and Insertion Left Ureteral Stent Insertion(Left) - Tony Saha, Cleared for discharge by urology service Flomax daily As needed [place] for severe pain Follow-up with urologist in [place] for definitive management of ureteral stent and ureteral stone Nonemergent renal protocol CT recommended for equivocal contour abnormality of the left kidney Will follow-up urine cultures (2) Hydronephrosis of left kidney: (3) Essential hypertension: Plan: Continue usual medications (4) Gout: Plan: Continue usual medication Plan plan of care discussed with patient in detail and at length all questions answered he is understanding, agreeable, comfortable with the plan of care Admission and Anticipated Discharge Date Admission Date: June 12, 2022 Subjective Follow-up for left UPJ stone, etc. Seen resting in bed, sitting up, comfortable, not distressed Status post ureteral stent placement earlier In good spirits States he feels much better overall Abdominal pain, inguinal pain resolved Has not voided yet no chest pain, dyspnea, palpitations, dizziness No fevers or chills States he is very ready for discharge later on this afternoon if possible Review of Systems Review of Systems: all noted and negative except for above Physical Exam Physical Exam: General- oriented x 3, not in distress, speaks in sentences with no effort or accessory muscle use Eyes- anicteric Neck- no JVD Lungs- clear breath sounds bilaterally, no rales/wheezes Heart- normal rate, regular rhythm; no murmurs Abdomen- normal bowel sounds, nondistended, soft, nontender Extremities- no pretibial edema, no calf tenderness Neuro- alert, oriented x 3; no gross focal neurologic deficits Skin- warm & dry Results & Data Results & Data ([facility]) Vital Signs (Past 12 Hours) Vital Signs Temp Pulse Pulse Pulse Resp BP Pulse Ox 06/13/22 12:25 60 16 113/75 97 06/13/22 12:00 36.4 C L 61 16 137/84 98 06/13/22 11:30 36.7 C 63 16 120/73 97 06/13/22 11:20 36.5 C 58 L 12 118/70 95 06/13/22 11:10 59 L 13 124/67 97 06/13/22 11:02 36.0 C L 60 14 136/54 L 98 06/13/22 09:21 36.8 C 70 16 172/90 H 96 06/13/22 07:53 36.7 C 69 16 148/84 H 94 O2 Del Method O2 Flow Rate 06/13/22 12:25 Room Air 06/13/22 12:00 Room Air 06/13/22 11:30 Room Air 06/13/22 11:20 Room Air 06/13/22 11:10 Oxymask 2 06/13/22 11:02 Oxymask 9 06/13/22 09:21 Room Air 06/13/22 07:53 Room Air all noted and reviewed including below
--- NOTE | 2022-06-13 22:23 | Electrocardiogram Report ---
Test Reason : Blood Pressure : / mmHG Vent. Rate : 065 BPM Atrial Rate : 065 BPM P-R Int : 200 ms QRS Dur : 090 ms QT Int : 388 ms P-R-T Axes : 045 035 043 degrees QTc Int : 403 ms Poor data quality, interpretation may be adversely affected Sinus rhythm with sinus arrhythmia Otherwise normal ECG No previous ECGs available Confirmed by Andreas Rush ([id number]) on 06/13/2022 10:23:15 PM Referred By: REFERRED SELF Confirmed By:Andreas Rush
--- NOTE | 2022-06-14 05:11 | Electrocardiogram Report ---
Test Reason : Blood Pressure : / mmHG Vent. Rate : 065 BPM Atrial Rate : 065 BPM P-R Int : 232 ms QRS Dur : 102 ms QT Int : 416 ms P-R-T Axes : 055 026 032 degrees QTc Int : 432 ms Sinus rhythm with 1st degree A-V block Otherwise normal ECG No previous ECGs available Confirmed by Andreas Rush ([id number]) on 06/14/2022 5:10:59 AM Referred By: REFERRED SELF Confirmed By:Andreas Rush
--- NOTE | 2022-06-14 17:47 | Discharge Summary ---
Discharge Summary Date of Service June 14, 2022 Notes For Next Care Provider Please refer to urologist for definitive management of ureteral stone, ureteral stent. Nonemergent renal protocol CT recommended for equivocal contour abnormality of the left kidney Please refer to assessment and plan below for further details. Medication Changes From Visit Flomax 20 mg p.o. daily [place] 5/325 mg p.o. as needed for severe pain Admission HPI Per Admitting Provider This is a 72 y/o male with a PMH of HTN, gout, and nephrolithiasis who presented to the ED with severe left chest and abdominal pain. He describes the abrupt onset of pain in left lower chest, left abdomen and flank, radiating to groin/testicle that started around 10 am today. Pain was gradually worsening but pt tried to continue with his day. It felt similar to prior episodes of kidney stones - tried to urinate to relieve the pain but no relief. Pain continued to worsen after and he developed associated nausea and dry heaves though no emesis. Decided to come to the ED for evaluation. His last kidney stone was about three years ago - required unknown procedure for removal. He has had some relief with the Morphine but persistent discomfort even with meds, pain continues to come back when the pain medications wear off. Denies dysuria, hematuria, fevers. Nausea better at present. No trauma to testicle recently. No testicular swelling. Visiting the area from [facility] to return home as soon as he is discharged. Admission Exam Per Admitting Provider Constitutional: well developed and well nourished; + uncomfortable Eyes: + anicteric sclerae Neck: trachea midline Respiratory: no respiratory distress and no labored breathing Auscultation: lungs clear to auscultation bilaterally; no rales, no rhonchi and no wheezes Cardiovascular: Rate/Rhythm: regular rate and regular rhythm Vessels: posterior tibial pulses present and radial pulses present Extremities: no pedal edema Gastrointestinal (Abdomen): Inspection/Auscultation: normal bowel sounds; abdomen not distended Percussion/Palpation: abdomen soft; abdomen nontender Musculoskeletal: Head/Neck/Chest: normocephalic, head atraumatic and neck supple Skin: no jaundice Neurologic: moves all extremities; no focal motor deficits and not confused Principal Dx & Hospital Course #1 = Principal Diagnosis (1) Urinary tract obstruction by kidney stone: CT abdomen/ pelvis: 1. 8 mm left ureteropelvic junction calculus which results in mild to moderate left hydronephrosis with moderate left perinephric stranding and fluid. 2. Left-sided nephrolithiasis. 3. Equivocal contour abnormality of the left kidney. This is likely due to a lobulation. An underlying solid renal lesion is considered less likely however a nonemergent renal protocol CT is recommended. 4. Hepatic steatosis. Urine culture: Pending 06/13/2022: Status post Cystoscopy with Left Retrograde Pyelogram and Insertion Left Ureteral Stent Insertion(Left) - Tony Saha, Cleared for discharge by urology service Flomax daily As needed [place] for severe pain Follow-up with urologist in [place] for definitive management of ureteral stent and ureteral stone Nonemergent renal protocol CT recommended for equivocal contour abnormality of the left kidney Will follow-up urine cultures (2) Hydronephrosis of left kidney: (3) Essential hypertension: Continue usual medications (4) Gout: Continue usual medication Plan plan of care discussed with patient in detail and at length all questions answered he is understanding, agreeable, comfortable with the plan of care Discharge Exam General- oriented x 3, not in distress, speaks in sentences with no effort or accessory muscle use Eyes- anicteric Neck- no JVD Lungs- clear breath sounds bilaterally, no rales/wheezes Heart- normal rate, regular rhythm; no murmurs Abdomen- normal bowel sounds, nondistended, soft, nontender Extremities- no pretibial edema, no calf tenderness Neuro- alert, oriented x 3; no gross focal neurologic deficits Skin- warm & dry Updated Medication List Medication Instructions Recorded Confirmed Type allopurinol 100 mg tablet 100 mg PO DAILY 06/12/22 06/12/22 History hydroxychloroquine 200 mg tablet 200 mg PO DAILY 06/12/22 06/12/22 History lisinopril 10 mg tablet 10 mg PO QPM 06/12/22 06/12/22 History metoprolol succinate 25 mg 25 mg PO QAM 06/12/22 06/12/22 History tablet,extended release 24 hr hydrocodone 5 mg-acetaminophen 325 1 tab PO Q6H PRN severe pain #10 06/13/22 Rx mg tablet tabs tamsulosin 0.4 mg capsule 0.4 mg PO QAM 30 days #30 caps 06/13/22 Rx Hospital Stay Data Consultations 06/12/22 15:49 ED Decision to Admit Stat 06/12/22 17:48 Consult Urology Routine Procedures Performed Operation Date: 06/13/22 10:00 Actual Procedures p Cystoscopy, Left Retrograde Pyelogram and Insertion Left Ureteral Stent Insertion(Left) - Tony Saha DO Diagnostic Imagining Performed 06/12/22 13:12 Abdomen/Pelvis CT 06/12/22 13:12 CT OF THE ABDOMEN AND PELVIS WITHOUT CONTRAST CLINICAL HISTORY: Left abdominal and flank pain. COMPARISON STUDY: No previous studies for comparison. TECHNIQUE: Axial images of the abdomen and pelvis were obtained without IV contrast. Images were reviewed in the axial, sagittal, and coronal planes. Automated exposure control was utilized for the study. A dose lowering technique was utilized adhering to the principles of ALARA. FINDINGS: Lung bases are unremarkable. An 8 mm left ureteropelvic junction calculus results in mild to moderate left hydronephrosis with moderate perinephric stranding. Several left renal calculi measure up to 8 mm. There is no right hydronephrosis. Prostate is enlarged, measuring 5.2 cm in transverse dimension. Water attenuation bilateral renal lesions are suboptimally assessed on this exam but favor cysts. There is equivocal contour abnormality within the midpole of the left kidney measuring approximately 3.2 cm. This likely reflects a lobulation. Evaluation of the remainder of the abdomen and pelvis is suboptimal on this unenhanced exam. There is hepatic steatosis. No biliary or pancreatic ductal dilatation is present. Spleen, adrenal glands and pancreas are unremarkable. The appendix is normal. There is no evidence for a bowel obstruction. No acute fracture or suspicious lesion is identified within visualized skeletal structures. There is no lymphadenopathy. IMPRESSION: 1. 8 mm left ureteropelvic junction calculus which results in mild to moderate left hydronephrosis with moderate left perinephric stranding and fluid. 2. Left-sided nephrolithiasis. 3. Equivocal contour abnormality of the left kidney. This is likely due to a lobulation. An underlying solid renal lesion is considered less likely however a nonemergent renal protocol CT is recommended. 4. Hepatic steatosis. ACT 112: Positive. There are findings on this exam that require communication between the performing entity and the patient following Patient Test Result Information Act ([place] Act 112) guidelines. Electronically signed by: Teodoro Johns M.D. 06/12/2022 2:06 PM Chest X-Ray 06/12/22 13:12 XR chest 1V portable CLINICAL HISTORY: Atypical chest pain. COMPARISON STUDY: No previous studies for comparison. FINDINGS: Enlargement of the cardiac silhouette is noted. This is accentuated on this AP exam. There is no pneumothorax or pleural effusion. Linear left basilar opacity reflects atelectasis. There is no consolidation to suggest pneumonia. No evidence for pulmonary edema. IMPRESSION: No acute cardiopulmonary findings. ACT 112: Negative or not required by law. Electronically signed by: Teodoro Johns M.D. 06/12/2022 2:11 PM Retrograde Pyelogram 06/13/22 00:00 INTRAOPERATIVE RADIOGRAPHS CLINICAL HISTORY: Left ureteral stent placement. Fluoroscopy time: 14 seconds. FINDINGS: 2 spot fluoroscopic views of the left abdomen are correlated with abdominal CT dated 06/12/2022. The images show the proximal and distal ends of a left ureteral stent in appropriate position. Contrast in the renal pelvis shows mild fullness of the collecting system. Surgical clips project over the right groin. IMPRESSION: Intraoperative images from a left ureter stent placement procedure as above. Electronically signed by: Ab Rai M.D. 06/13/2022 11:14 AM Pending Results Patient Have Any Pending Studies at Discharge: Yes Discharge Instructions Given to Patient (Per Discharging Provider) PLEASE REFER TO YOUR NEW MEDICATION LIST AND FOLLOW INSTRUCTIONS CAREFULLY. YOUR NEW MEDICATIONS INCLUDE: Flomax-to assist with passing kidney stone, stop this medication if you experience lightheadedness or dizziness specially after standing up [place]-narcotic, as needed for severe pain Drink plenty of water, 6 to 8 glasses/day. PLEASE CALL YOUR PRIMARY CARE PHYSICIAN OR RETURN TO THE ER IF WITH WORSENING OF SYMPTOMS, INCLUDING Abdominal/back pain, problems with urination, blood in the urine, fevers or chills, nausea vomiting, dizziness or lightheadedness, etc. Next FOLLOW UP WITH PRIMARY CARE PHYSICIAN IN 1 WEEK. FOLLOW-UP WITH A LOCAL UROLOGIST IN [place] IN 1 TO 2 WEEKS. Total Time Total Time Spent Total Time Spent (In Minutes): >30 minutes
== END 2022-06-13 17:25 | disposition home or self-care (01) | DRG 661 ==
LOC: ED 12:56 → INTOOBSV 16:33 → SUATTDRO 16:33 → OBSVTOIN 16:33 → 3E 16:33